=== PATIENT | female | born 1990 | race Caucasian/White ===

== ENCOUNTER 2018-10-13 01:55 | Emergency (ER) | payer OTHER ==
[~2018-10-13] VITALS: Ht 152.4 cm; Wt 95.0 kg
[~2018-10-13 01:55] MED LIST: FER325 PO; PREN-39 PO
[2018-10-13 02:04] VITALS: Ht 152.4 cm; Wt 95.0 kg
[2018-10-13] MEDS ORDERED: morphine 2 MG INJ IV STA (03:26)
[2018-10-13] MEDS ORDERED: SOD CHLORIDE 0.9% 1,000 ML IV STA (03:26)
[2018-10-13] MEDS ORDERED: ONDANSETRON 4 MG INJ IV STA (03:26)
--- NOTE | 2018-10-13 03:30 | ERD ---
ER Documentation Chief Complaint Chief Complaint Pt has know abd mass and having abd pain, waiting on MRI Sat HPI This is a 28-year-old female presents ED with complaints of upper abdominal pain and back pain x1 week. Patient states that the pain is been getting worse over the past week. Patient denies any fall or injury to account for pain. Patient describes pain is constant and achy. Patient states that she was seen 2 weeks ago at another ER and had a CT of the abdomen and pelvis with IV contrast performed as well as ultrasound and a mass was found incidentally. The mass is located in the duodenal and IVC area and patient has a an MRI scheduled to be performed in the next 5 days. Patient was seen again 3 days ago for this same pain and was given morphine which relieved the pain. Denies fever, chills, nausea, vomiting, diarrhea, constipation, hematemesis, melena, hematochezia, dysuria, hematuria, bowel/bladder incontinence. No known drug allergies. Patient has been seen by general surgery for abdominal mass - patient is unsure of general surgeons name ROS All systems reviewed and are negative except as per history of present illness. Medications Home Meds Reported Medications Ferrous Sulfate* (Ferrous Sulfate*) 325 Mg Tabec, 325 MG PO DAILY, TAB 12/10/13 Vits W-Ca,Fe,Fa(<1MG) ( Vitamins) 1 Tab Tablet, 1 TAB PO DAILY 12/10/13 Allergies Allergies: Coded Allergies: No Known Allergy (Unverified , 10/17/11) PMhx/Soc History of Surgery: No Anesthesia Reaction: No Hx Neurological Disorder: No Hx Respiratory Disorders: No Hx Cardiac Disorders: No Hx Psychiatric Problems: No Hx Miscellaneous Medical Probl: No Hx Alcohol Use: No Hx Substance Use: No Hx Tobacco Use: No FmHx Family History: No diabetes Physical Exam Vitals Vital Signs Date Temp Pulse Resp B/P (MAP) Pulse Ox O2 O2 Flow FiO2 Time Delivery Rate 10/13/18 98.5 85 16 126/90 100 02:04 (102) Physical Exam Physical Exam Vitals signs: Reviewed by me. General: Well developed, well nourished, in no acute distress. Patient is awake and alert. Head: Normocephalic, atraumatic. Eyes: Normal conjunctiva, Pupils PERRLA, EOM intact grossly ENT: Pharynx is clear, Moist mucous membranes, external ears, nose and mouth normal Neck: Supple, no masses, lymphadenopathy or JVD Respiratory: Clear to auscultation bilaterally with no wheezing, rhonchi, rales, no distress Cardiovascular: RRR, no murmurs, rubs, or gallops Abdominal: Soft, nondistended, no peritoneal signs, no rigidity, no surgical abdomen, bowel sounds present all 4 quadrants, nontender light deep palpation all 4 quadrants, McBurney's point nontender, no rebound tenderness, Painter sign negative : Deferred MSK: No edema, no unilateral swelling, 5/5 strength Back: No midline tenderness. No flank tenderness Neurologic: Alert and oriented, moving all extremities, normal speech, no focal weakness, no cerebellar signs. Normal mentation Skin: warm and dry, No rash Psych: Normal mood Result Diagram: 10/13/18 0350 10/13/18 0350 Results 24 hrs Laboratory Tests Test 10/13/18 03:43 10/13/18 03:50 POC Beta HCG, Qualitative NEGATIVE White Blood Count 8.3 10^3/ul Red Blood Count 4.45 10^6/ul Hemoglobin 12.5 g/dl Hematocrit 38.1 % Mean Corpuscular Volume 85.6 fl Mean Corpuscular Hemoglobin 28.1 pg Mean Corpuscular Hemoglobin Concent 32.8 g/dl Red Cell Distribution Width 13.2 % Platelet Count 191 10^3/UL Mean Platelet Volume 13.4 fl Immature Granulocytes % 1.000 % Neutrophils % 72.1 % Lymphocytes % 17.5 % Monocytes % 6.7 % Eosinophils % 2.2 % Basophils % 0.5 % Nucleated Red Blood Cells % 0.0 /100WBC Immature Granulocytes # 0.080 10^3/ul Neutrophils # 6.0 10^3/ul Lymphocytes # 1.5 10^3/ul Monocytes # 0.6 10^3/ul Eosinophils # 0.2 10^3/ul Basophils # 0.0 10^3/ul Nucleated Red Blood Cells # 0.0 10^3/ul Urine Color YELLOW Urine Clarity CLEAR Urine pH 5.0 Urine Specific Rankin 1.024 Urine Ketones NEGATIVE mg/dL Urine Nitrite NEGATIVE mg/dL Urine Bilirubin NEGATIVE mg/dL Urine Urobilinogen NEGATIVE mg/dL Urine Leukocyte Esterase TRACE Juan Carlos/ul Urine Microscopic RBC 1 /HPF Urine Microscopic WBC 0 /HPF Urine Squamous Epithelial Cells FEW /HPF Urine Mucus FEW /HPF Urine Hemoglobin NEGATIVE mg/dL Urine Glucose NEGATIVE mg/dL Urine Total Protein NEGATIVE mg/dl Sodium Level 141 mmol/L Potassium Level 4.2 mmol/L Chloride Level 107 mmol/L Carbon Dioxide Level 28 mmol/L Anion Gap 6 Blood Urea Nitrogen 9 mg/dl Creatinine 0.57 mg/dl Est Glomerular Filtrat Rate mL/min > 60 mL/min Glucose Level 125 mg/dl Calcium Level 8.7 mg/dl Total Bilirubin 0.6 mg/dl Direct Bilirubin 0.00 mg/dl Indirect Bilirubin 0.6 mg/dl Aspartate Amino Transf (AST/SGOT) 352 IU/L Alanine Aminotransferase (ALT/SGPT) 381 IU/L Alkaline Phosphatase 111 IU/L Total Protein 7.1 g/dl Albumin 3.8 g/dl Globulin 3.30 g/dl Albumin/Globulin Ratio 1.15 Lipase 103 U/L Current Medications Medications Dose Sig/Ely Start Time Status Last (Trade) Ordered Route PRN Stop Time Admin Dose Reason Admin Sodium 1,000 ml @ Q1H STAT 10/13/18 DC 10/13/18 Chloride 1,000 mls/hr IV 03:26 04:05 10/13/18 04:25 Morphine 4 mg ONCE STAT 10/13/18 DC 10/13/18 Sulfate IV 03:26 04:04 (morphine) 10/13/18 03:27 Ondansetron 4 mg ONCE STAT 10/13/18 DC 10/13/18 HCl (Zofran IV 03:26 04:03 Inj) 10/13/18 03:27 Procedures/MDM LAB INTERPRETATION: CBC shows no evidence of hemorrhage or infection Chemistry shows no evidence of significant electrolyte abnormalities or renal insufficiency Liver function test shows no evidence of acute biliary or hepatic dysfunction, elevated AST 352, elevated ALT 381 Lipase shows no evidence of acute pancreatitis Urinalysis unremarkable ER COURSE: The patient was given IV normal saline, morphine, Zofran The medication was well tolerated and the patient reports improvement in symptoms. The patient was stable throughout ED course. I kept the patient and/or family informed of laboratory and diagnostic imaging results throughout the emergency room course. The patient was promptly evaluated and a treatment plan was devised based on H&P and other data. This plan was discussed with the patient who agreed and had no further questions or concerns prior to discharge. MEDICAL DECISION MAKING: This is a 28-year-old female presents ED with complaints of upper abdominal pain and back pain x1 week. Patient states that the pain is been getting worse over the past week. Patient denies any fall or injury to account for pain. Patient describes pain is constant and achy. Patient states that she was seen 2 weeks ago at another ER and had a CT of the abdomen and pelvis with IV contrast performed as well as ultrasound and a mass was found incidentally. The mass is located in the duodenal and IVC area and patient has a an MRI scheduled to be pe rformed in the next 5 days. Patient was seen again 3 days ago for this same pain and was given morphine which relieved the pain. Physical examination is unremarkable. Patient was given pain medication in the emergency department reports resolution of pain. Lab work in the emergency department is somewhat unremarkable. There is an elevated AST and ALT. Discussed these findings with my overseeing physician Dr. Waddell and he agrees with plan of close outpatient follow-up.. Given patient's recent CT of the abdomen and pelvis with IV contrast as well as recent ultrasound I do not think advanced imaging is necessary at this time. Patient does have a scheduled MRI in the next 5 days. At this time there is no gastrointestinal emergency. No evidence of cholecystitis, cholangitis, pancreatitis, small bowel obstruction, perforated viscus, volvulus, pyelonephritis, among others. No evidence of sepsis or meningitis. Vitals are stable patient can be managed close outpatient follow-up. Advised patient to follow-up with primary care in the next 48 hours. Return to ED with any worsening symptoms DISPOSITION PLAN: We discussed follow up with the patient's primary care doctor within 24 to 48 hours. Patient counseled regarding my diagnostic impression and care plan. Prior to discharge all questions answered. Pt agrees with treatment plan and understands strict return precautions. Precautionary instructions provided including instructions to return to the ER if not improving or for any worsening or changing symptoms or concerns. SPECIALIST FOLLOW UP RECOMMENDED: general surgery Patient has been advised to follow up with primary care in 1-2 days. Disclaimer: Inadvertent spelling and grammatical errors are likely due to EHR/dictation software use and do not reflect on the overall quality of patient care. Also, please note that the electronic time recorded on this note does not necessarily reflect the actual time of the patient encounter. Departure Diagnosis: Primary Impression: Abdominal pain Abdominal location: upper abdomen, unspecified Qualified Codes: R10.10 - Upper abdominal pain, unspecified Condition: Stable Patient Instructions: Abdominal Pain Referrals: [facility] Additional Instructions: Patient advised to return to the ED immediately for new or worsening symptoms. Patient advised to follow up with primary care provider in the next 24-48 hours. Patient verbalized understanding and agrees with treatment plan and course of action. If patient has no primary care they may follow up with one of the community clinics listed on the following page or one of the options listed below [facility] + [address] [address] [address] [facility] [id number] [place] [id number] or [facility] [address] [place] [address] KARLA FLOWERS PA-C October 13, 2018 03:30
[2018-10-13 05:05] VITALS: BP 125/80; PULSE 65; RESP 16
== END 2018-10-13 05:20 | disposition home or self-care (01) ==
LOC: FTE 01:55
DX: R10.10 Upper abdominal pain, unspecified (principal)
CPT/HCPCS: 36415; 80053; 81001; 81025; 83690; 85025; 96361; 96374; 96375; J2270; J2405; J7030; Z7502

== ENCOUNTER 2018-11-04 23:28 | Emergency (ER) | payer SELFPAY ==
[~2018-11-04] VITALS: Ht 162.6 cm; Wt 96.0 kg
[2018-11-04 23:36] VITALS: BP 144/88; PULSE 99; RESP 18; Ht 162.6 cm; Wt 96.0 kg
== END 2018-11-04 23:54 | disposition left against medical advice (07) ==
LOC: FTE 23:28
DX: Z53.21 Procedure and treatment not carried out due to patient leaving prior to being seen by health care provider (principal)